=== PATIENT | female | born 1980 | race Caucasian/White ===

== ENCOUNTER 2016-10-26 11:19 | Emergency (ER) | payer BC | END 2016-10-26 12:20 | disposition home or self-care (01) | LOC: ER1 11:19 | DX: S60.222A Contusion of left hand, initial encounter (principal); Z88.1 Allergy status to other antibiotic agents; F17.210 Nicotine dependence, cigarettes, uncomplicated; X58.XXXA Exposure to other specified factors, initial encounter; Y92.009 Unspecified place in unspecified non-institutional (private) residence as the place of occurrence of the external cause | CPT/HCPCS: 73130; 99283 ==